=== PATIENT | female | born 1980 | race Hispanic/Latino ===

== ENCOUNTER 2018-08-09 14:49 | Emergency (ER) | payer SELFPAY ==
[2018-08-09 15:20] VITALS: BP 119/83; PULSE 117; RESP 20; TEMP 98.3; O2SAT 100
--- NOTE | 2018-08-09 21:24 | C.PDOC ---
History Of Present Illness 38 y/o female brought to ER by ambulance for evaluation after she was pulled over by the police. 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 During her ride, she was pulled over by the police. As per police, patient's mother reported her missing. Patient denies having suicidal ideation, homicidal ideation, and active physical complaints. Time Seen by Provider: 08/09/18 15:04 Chief Complaint (Nursing): Medical Clearance History Per: Patient History/Exam Limitations: no limitations Past Medical History Reviewed: Historical Data, Nursing Documentation, Vital Signs Vital Signs: Last Vital Signs Temp 98.3 F 08/09/18 14:54 Pulse 117 H 08/09/18 14:54 Resp 20 08/09/18 14:54 BP 119/83 08/09/18 14:54 Pulse Ox 100 08/09/18 14:54 Primary Care Provider: Non [facility] Provider, - Medical History PMH: No Chronic Diseases Surgical History: No Surg Hx Family History: States: No Known Family Hx - Social History Hx Alcohol Use: Yes Hx Substance Use: No Review Of Systems Except As Marked, All Systems Reviewed And Found Negative. Constitutional: Negative for: Fever, Chills Cardiovascular: Negative for: Chest Pain Respiratory: Negative for: Shortness of Breath Gastrointestinal: Negative for: Nausea, Vomiting Physical Exam - Physical Exam Appears: Non-toxic, No Acute Distress Skin: Normal Color, Warm, Dry Head: Atraumatic, Normacephalic Eye(s): bilateral: Normal Inspection Nose: Normal Oral Mucosa: Moist Neck: Supple Chest: Symmetrical Neurological/Psych: Oriented x3, Normal Speech ED Course And Treatment O2 Sat by Pulse Oximetry: 100 (RA) Pulse Ox Interpretation: Normal Medical Decision Making Medical Decision Making: Plan: --Labs --UA --HCG, Qual. Disposition - [facility] - Disposition: HOME/ ROUTINE Disposition Time: 15:20 Condition: GOOD Additional Instructions: JAMISON PALOMINO, thank you for letting us take care of you today. The emergency medical care you received today was directed at your acute symptoms. If you were prescribed any medication, please fill it and take as directed. It may take several days for your symptoms to resolve. Return to the Emergency Department if your symptoms worsen, do not improve, or if you have any other problems. Please contact your doctor or call one of the physicians/clinics you have been referred to that are listed on the Patient Visit Information form that is included in your discharge packet. Bring any paperwork you were given at discharge with you along with any medications you are taking to your follow up visit. Our treatment cannot replace ongoing medical care by a primary care provider outside of the emergency department. Thank you for allowing the [facility] team to be part of your care today. Follow up with your long-term rehab center today. Instructions: Alcohol Abuse and Alcoholism (DC) Forms: [employer] (Danish) - Clinical Impression Clinical Impression: Medical assessment - Scribe Statement The provider has reviewed the documentation as recorded by the Malindaibe Poonam Otero Provider Attestation: All medical record entries made by the Scribe were at my direction and personally dictated by me. I have reviewed the chart and agree that the record accurately reflects my personal performance of the history, physical exam, medical decision making, and the department course for this patient. I have also personally directed, reviewed, and agree with the discharge instructions and dis position.
== END 2018-08-09 15:28 | disposition home or self-care (01) ==
LOC: C.ER 14:49
DX: Z00.00 Encounter for general adult medical examination without abnormal findings (principal)